=== PATIENT | female | born 1960 | race African-American/Black ===

== ENCOUNTER 2017-01-23 07:41 | Emergency (ER) | payer OTHER ==
[~2017-01-23 07:41] MED LIST: ALBUTEROL1.25 MG/3 INH/SOL; AMLODIPINE BESY10 M1 PO; ASPIRIN81 M4 PO; CLEOCIN HCL300 MG PO; CLOPIDOGREL75 M1 PO; EPIPEN 2-PAK1 MG/ML IM; FUROSEMIDE20 M1 PO; GLYBURIDE5 M1 PO; LANTUS SOL100 UNIT/1 SC; LISINOPRIL20 M1 PO; METFORMIN HCL1000 M1 PO; NOVOLOG FL100 UNIT/1; POTASSIUM CHLO10 ME4 PO; PREDNICOT20 MG PO; PREDNISONE20 MG PO; PROAIR HFA8.5 GM INH; RANEXA1000 M1 PO; SIMVASTATIN40 M1 PO; TESSALON PERLE100 M1 PO; TORADOL10 MG PO
--- NOTE | 2017-01-23 08:39 | ED HAND/WRIST INJURY COMPLAINT ---
History of Present Illness General Chief Complaint: Hand or Wrist Injury Stated Complaint: RT HAND INJURY AT WORK Source: patient Exam Limitations: no limitations Vital Signs & Intake/Output Vital Signs & Intake/Output Vital Signs Date Time Temp Pulse Resp B/P B/P Pulse O2 O2 Flow FiO2 Mean Ox Delivery Rate 01/23 0758 99 Room Air 01/23 0746 97.2 61 16 157/81 98 Allergies Coded Allergies: latex (Severe, ANAPHYLAXIS 04/26/16) peanut (Severe, ANAPHYLAXIS 04/26/16) soy (Severe, ANAPHYLAXIS 04/26/16) Penicillins (Severe, N/V 04/26/16) Sulfa (Sulfonamide Antibiotics) (Severe, N/V 04/26/16) codeine (Severe, N/V 04/26/16) Uncoded Allergies: DRY SAUSAGE (Severe, LARYNGEAL EDEMA 04/26/16) Reconcile Medications Albuterol Sulfate (Proair Hfa) 8.5 GM HFA.AER.AD 2 PUF INH Q4-6 PRN PRN Bronchitis Albuterol Sulfate (Albuterol Sulfate Nebulizer Soln) 1.25 MG/3 ML BREANNA 1 Vial INH/BREANNA Q6 PRN DYSPNEA Amlodipine Besylate 10 MG TABLET 1 TAB PO DAILY HEART (Reported) Aspirin (Aspirin*) 81 MG TAB.CHEW 1 TAB PO DAILY HEART HEALTH (Reported) Benzonatate (Tessalon Perle) 100 MG CAPSULE 1 CAP PO TID Cough Clopidogrel Bisulfate (Clopidogrel) 75 MG TABLET 1 TAB PO DAILY BLOOD THINNER (Reported) Epinephrine (Epipen 2-Khurram Auto-Injector) 1 MG/ML KIT 0.3 mg IM PRN ANAPHYLAXIS Furosemide 20 MG TABLET 2 TAB PO DAILY WATER PILL (Reported) Glyburide 5 MG TABLET 2 TAB PO BID DIABETES (Reported) Insulin Aspart, Recombinant (Novolog Flexpen) (Unknown Strength) INSULN.PEN ( Unknown Dose) SEE SLIDING SCALE DIABETES (Reported) Insulin Glargine,Hum.rec.anlog (Lantus Solostar) 100 UNIT/1 ML INSULN.PEN 20 UNIT SC QPM DIABETES (Reported) Lisinopril 20 MG TABLET 1 TAB PO DAILY HEART (Reported) Metformin HCl 1,000 MG TABLET 1 TAB PO BID DIABETES (Reported) Potassium Chloride 10 MEQ TABLET.ER 1 TAB PO DAILY SUPPLEMENT (Reported) Ranolazine (Ranexa) 1,000 MG TAB.ER.12H 1 TAB PO BID HEART (Reported) Simvastatin (Simvastatin*) 40 MG TABLET 1 TAB PO QPM CHOLESTEROL (Reported) Triage Note: PT HURT RIGHT HAND 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 STATES IT IS HARD TO MOVE. 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 Triage Nurses Notes Reviewed? yes HPI: Patient presents for evaluation of the right wrist and thumb injury that occurred at about midnight while at work. Patient states that she was picking up a batch of charts when she felt a pulling sensation in the base of the right thumb and wrist. She applied ice and took ibuprofen thereafter. Since then however the patient has had a constant and worsening pain described as initially mild but now becoming moderate to severe that gets worse with movement and palpation. She has also noticed some swelling in the areas of pain but no bruising. Past History Travel History Traveled to [place] past 21 day No Medical History Any Pertinent Medical History? 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 Psychosocial History Services at Home None What is your primary language Slovenian Tobacco Use: Never used Family History Hx Contributory? No Review of Systems Review of Systems Constitutional: Reports: no symptoms. EENTM: Reports: no symptoms. Respiratory: Reports: no symptoms. Cardiovascular: Reports: no symptoms. GI: Reports: no symptoms. Genitourinary: Reports: no symptoms. Musculoskeletal: Reports: see HPI. Skin: Reports: no symptoms. Neurological/Psychological: Reports: no symptoms. Hematologic/Endocrine: Reports: no symptoms. Immunologic/Allergic: Reports: no symptoms. All Other Systems: Reviewed and Negative Physical Exam Physical Exam Hand Left: normal inspection Hand Right: see below Comments: Gen.: Well-nourished, well-developed, no acute respiratory distress. Head: Normocephalic, atraumatic. Eyes: Normal inspection bilaterally Ears: Normal inspection bilaterally Nose: Normal inspection, nasal cannula in place Throat/mouth : Moist mucosa Neck: Supple, full range of motion, no goiter Heart: Regular rate and rhythm Lungs: Quiet respirations Back: Normal range of motion Extremities: Right hand: Nontender over the phalanges of the right thumb, all fingers are neurovascularly intact with normal range of motion, patient does have pain with range of motion of the right thumb. No apparent soft tissue swelling. Right wrist: Nontender over the snuffbox or distal radius and ulna. No significant soft tissue swelling or ecchymoses noted. No deformity. Neurologic: Cranial nerves grossly intact, speech is clear Skin: warm and dry Psychiatric: Calm, cooperative, no apparent delusions or hallucinations Progress Differential Diagnosis: see notes Plan of Care: Orders Procedure Date/time Status Durable Medical Equipment 01/23 2968 Active Comments: 3 rings removed from the patient's right hand due to the possibility of dependent edema. Doubt fracture given the mechanism and physical exam (no bony tenderness). Departure Departure Disposition: HOME OR SELF CARE Condition: Stable Clinical Impression Primary Impression: Right wrist sprain Qualifiers: Encounter type: initial encounter Qualified Code: S63.501A - Unspecified sprain of right wrist, initial encounter Secondary Impressions: Sprain of right thumb Qualifiers: Encounter type: initial encounter Sprain of finger site: unspecified site Qualified Code: S63.601A - Unspecified sprain of right thumb, initial encounter Referrals: MIK ROY,ESTELA Carty (PCP/Family) Additional Instructions: Breast your right hand and wrist. Use the wrist immobilizer as necessary. Ibuprofen 600 mg every 6 hours as needed for pain. Follow-up with occupational health on Wednesday. Return if any concerns or sudden worsening. Thank you for choosing the [facility] for your care. It was a pleasure to serve you today. Jewel Tuttle M.D. [facility] Departure Forms: Customer Survey Employee Industrial Accident General Discharge Information
[2017-01-23 08:59] VITALS: BP 124/74
== END 2017-01-23 09:01 ==
LOC: ERH 07:41
DX: S63.501A Unspecified sprain of right wrist, initial encounter (principal); S63.601A Unspecified sprain of right thumb, initial encounter; X50.0XXA Overexertion from strenuous movement or load, initial encounter; Y93.89 Activity, other specified; Y92.9 Unspecified place or not applicable